=== PATIENT | female | born 1970 | race Native Hawaiian/Other Pacific Islander ===

== ENCOUNTER 2017-10-28 08:21 | Outpatient (CLI) | payer BC | END 2017-10-28 18:00 | disposition home or self-care (01) | LOC: MAMMO 08:21 | DX: Z12.31 Encounter for screening mammogram for malignant neoplasm of breast (principal) ==

== ENCOUNTER 2018-12-29 08:18 | Outpatient (CLI) | payer BC | END 2018-12-29 23:10 | disposition home or self-care (01) | LOC: MAMMO 08:18 | DX: Z12.31 Encounter for screening mammogram for malignant neoplasm of breast (principal) ==

== ENCOUNTER 2019-11-01 09:18 | Outpatient (CLI) | payer BC | END 2019-11-01 20:13 | disposition home or self-care (01) | LOC: US 09:18 | DX: R60.0 Localized edema (principal); M79.652 Pain in left thigh ==

== ENCOUNTER 2019-12-13 10:20 | Outpatient (CLI) | payer BC | END 2019-12-13 19:12 | disposition home or self-care (01) | LOC: RAD 10:20 | DX: M25.512 Pain in left shoulder (principal) ==

== ENCOUNTER 2019-12-31 09:32 | Outpatient (CLI) | payer BC | END 2019-12-31 19:40 | disposition home or self-care (01) | LOC: MAMMO 09:32 | DX: Z12.31 Encounter for screening mammogram for malignant neoplasm of breast (principal) ==

== ENCOUNTER 2020-07-12 09:27 | Outpatient (CLI) | payer BC | END 2020-07-12 23:58 | disposition home or self-care (01) | LOC: EMG 09:27 | DX: Z47.89 Encounter for other orthopedic aftercare (principal); M50.21 Other cervical disc displacement, high cervical region | CPT/HCPCS: 95861; 95912 ==

== ENCOUNTER 2020-08-04 07:37 | Outpatient (CLI) | payer BC ==
[2020-08-04 08:38] LABS: POTASSIUM 3.9 mmol/L (3.6-5.2)
== END 2020-08-04 23:16 | disposition home or self-care (01) ==
LOC: LABW 07:37
PROVIDERS: Family Medicine
DX: I10 Essential (primary) hypertension (principal); E03.9 Hypothyroidism, unspecified
CPT/HCPCS: 36415; 80053; 80061; 84436; 84443; 84479

== ENCOUNTER 2020-08-08 10:06 | Outpatient (CLI) | payer BC | END 2020-08-08 19:34 | disposition home or self-care (01) | LOC: LAB 10:06 | DX: I10 Essential (primary) hypertension (principal); E03.9 Hypothyroidism, unspecified | CPT/HCPCS: 83001; 83002 ==

== ENCOUNTER 2022-02-13 08:08 | Outpatient (CLI) | payer BC | END 2022-02-13 19:07 | disposition home or self-care (01) | LOC: MAMMO 08:08 | PROVIDERS: ATTEND Family Medicine | DX: Z12.31 Encounter for screening mammogram for malignant neoplasm of breast (principal); M81.8 Other osteoporosis without current pathological fracture ==

== ENCOUNTER 2022-11-08 14:15 | Outpatient (CLI) | payer BC | END 2022-11-08 23:39 | disposition home or self-care (01) | LOC: MRI 14:15 | PROVIDERS: ATTEND Physician Assistant | DX: D49.6 Neoplasm of unspecified behavior of brain (principal) | CPT/HCPCS: 36415; 82565; 84520; A9576 ==